=== PATIENT | male | born 1980 ===

== ENCOUNTER 2021-03-01 23:47 | Emergency (ER) | payer SELFPAY ==
[2021-03-02] MEDS ORDERED: ALBUTEROL 8.5 GM MDI INHALATION IH ONE (04:14)
[2021-03-02] MEDS ORDERED: ACETAMINOPHEN 500 MG TAB PO ONE (04:14)
--- NOTE | 2021-03-02 04:46 | XRay Report ---
CHEST 1 VIEW INDICATION / CLINICAL INFORMATION: cough, dyspnea, COVID-19 +ve. COMPARISON: None available. FINDINGS: SUPPORT DEVICES: None. HEART / MEDIASTINUM: No significant abnormality. LUNGS / PLEURA: No significant pulmonary or pleural abnormality. No pneumothorax. ADDITIONAL FINDINGS: No significant additional findings. IMPRESSION: 1. No acute findings. Signer Name: Nory Edmond MD Signed: 03/02/2021 4:41 AM Workstation Name: [id number]
--- NOTE | 2021-03-02 06:40 | Emergency Department Report ---
- General Chief Complaint: Upper Respiratory Infection Stated Complaint: COVID19 Source: patient Mode of arrival: Ambulatory Limitations: Language Barrier - History of Present Illness Initial Comments: Patient is a 40-year-old male with no past medical history presented to the ED with complaint of acute onset persistent nasal and sinus congestion, frontal sinus pressure, diffuse body aches and pains, subjective fever and chills intermittently and persistent dry cough with chest tightness and shortness of breath for the last 5 days. Patient stated that he tested positive for COVID-19 viral infection 2 days ago and that in the last 2 days his symptoms have worsened. Patient denies dizziness, syncope, chest pain, nausea and vomiting and diarrhea, dysuria, urinary frequency and urgency, abdominal pain, change in vision, testicular pain or hematuria. MD Complaint: fever, cough, rhinorrhea, nasal congestion, sinus pain, other (Diffuse body aches and pains; tested positive for COVID-19 viral infection 2 days ago) -: Sudden, days(s) (5) Severity: severe Severity scale (0 -10): 7 Quality: sharp, aching Consistency: constant Improves With: nothing Worsens With: nothing Context: sick contacts Associated Symptoms: fever, chills, myalgias, headache, rhinorrhea, nasal congestion, cough. denies: diaphoresis, sore throat, stiff neck, chest pain, shortness of breath, abdominal pain, nausea, vomiting, diarrhea, dysuria, rash, confusion, weight loss, epistaxis Treatments Prior to Arrival: "cold medicine" - Related Data Previous Rx's Medication Instructions Recorded Last Taken Type Acetaminophen [Tylenol] 500 mg PO Q6HR PRN #40 tablet 03/02/21 Unknown Rx Albuterol Sulfate [Proventil Hfa] 2 puff IH Q6H PRN #1 hfa.aer.ad 03/02/21 Unknown Rx Ascorbic Acid [Vitamin C] 1,000 mg PO Q12H #60 tablet 03/02/21 Unknown Rx Benzonatate [Tessalon Perles] 100 mg PO Q8HR #30 capsule 03/02/21 Unknown Rx Cetirizine HCl [Zyrtec 10mg tab] 10 mg PO DAILY #30 tablet 03/02/21 Unknown Rx Allergies Allergy/AdvReac Type Severity Reaction Status Date / Time No Known Allergies Allergy Verified 03/02/21 05:04 ED Review of Systems ROS: Stated complaint: COVID19 Other details as noted in HPI Constitutional: chills, fever, malaise Eyes: denies: eye pain, eye discharge, vision change ENT: congestion, other (Frontal sinus pressure). denies: ear pain, throat pain Respiratory: cough, shortness of breath. denies: wheezing Cardiovascular: denies: chest pain, palpitations Endocrine: no symptoms reported Gastrointestinal: denies: abdominal pain, nausea, vomiting, diarrhea Genitourinary: denies: urgency, dysuria Musculoskeletal: arthralgia, myalgia. denies: back pain, joint swelling Skin: denies: rash, lesions Neurological: headache. denies: weakness, paresthesias Psychiatric: denies: anxiety, depression Hematological/Lymphatic: denies: easy bleeding, easy bruising ED Past Medical Hx - Past Medical History Previous Medical History?: No - Surgical History Past Surgical History?: No - Medications Home Medications: Home Medications Medication Instructions Recorded Confirmed Last Taken Type Acetaminophen [Tylenol] 500 mg PO Q6HR PRN #40 tablet 03/02/21 Unknown Rx Albuterol Sulfate [Proventil Hfa] 2 puff IH Q6H PRN #1 hfa.aer.ad 03/02/21 Unknown Rx Ascorbic Acid [Vitamin C] 1,000 mg PO Q12H #60 tablet 03/02/21 Unknown Rx Benzonatate [Tessalon Perles] 100 mg PO Q8HR #30 capsule 03/02/21 Unknown Rx Cetirizine HCl [Zyrtec 10mg tab] 10 mg PO DAILY #30 tablet 03/02/21 Unknown Rx ED Physical Exam - General Limitations: Language Barrier General appearance: alert, in no apparent distress - Head Head exam: Present: atraumatic, normocephalic, normal inspection - Eye Eye exam: Present: normal appearance, PERRL, EOMI Pupils: Present: normal accommodation - ENT ENT exam: Present: normal orophraynx, mucous membranes moist, TM's normal bilaterally, normal external ear exam, other (Grossly congested nasal passages; palpable frontal sinus tenderness) - Neck Neck exam: Present: normal inspection, full ROM. Absent: tenderness - Respiratory Respiratory exam: Present: normal lung sounds bilaterally. Absent: respiratory distress, wheezes, rales, rhonchi, chest wall tenderness, accessory muscle use, decreased breath sounds, prolonged expiratory - Cardiovascular Cardiovascular Exam: Present: regular rate, normal rhythm, normal heart sounds. Absent: systolic murmur, diastolic murmur, rubs, gallop - GI/Abdominal GI/Abdominal exam: Present: soft, normal bowel sounds. Absent: tenderness, guarding, rebound, hyperactive bowel sounds, hypoactive bowel sounds, organomegaly, mass - Extremities Exam Extremities exam: Present: normal inspection, full ROM, normal capillary refill - Back Exam Back exam: Present: normal inspection, full ROM. Absent: tenderness, CVA tenderness (L), muscle spasm, paraspinal tenderness, vertebral tenderness - Neurological Exam Neurological exam: Present: alert, oriented X3, CN II-XII intact, normal gait, reflexes normal - Psychiatric Psychiatric exam: Present: normal affect, normal mood - Skin Skin exam: Present: warm, dry, intact, normal color. Absent: rash ED Course Vital Signs 03/02/21 02:03 Temperature 98.4 F Pulse Rate 84 Respiratory 18 Rate Blood Pressure 115/85 [Right] O2 Sat by Pulse 98 Oximetry ED Medical Decision Making - Radiology Data Radiology results: report reviewed, image reviewed [facility] [address] [place] [address] XRay Report Signed Patient: WILLIAM HERNÁNDEZ MR#: [id number] : 1980 Acct:[id number] Age/Sex: 40 / M ADM Date: 03/01/21 Loc: ED Attending Dr: Ordering Physician: MAGGIE BAUTISTA Date of Service: 03/02/21 Procedure(s): XR chest 1V ap Accession Number(s): [id number] cc: MAGGIE BAUTISTA Fluoro Time In Minutes: CHEST 1 VIEW INDICATION / CLINICAL INFORMATION: cough, dyspnea, COVID-19 +ve. COMPARISON: None available. FINDINGS: SUPPORT DEVICES: None. HEART / MEDIASTINUM: No significant abnormality. LUNGS / PLEURA: No significant pulmonary or pleural abnormality. No pneumothorax. ADDITIONAL FINDINGS: No significant additional findings. IMPRESSION: 1. No acute findings. Signer Name: Nory Edmond MD Signed: 03/02/2021 4:41 AM Workstation Name: [id number] Transcribed By: JR Dictated By: Nory Edmond MD Electronically Authenticated By: Nory Edmond MD Signed Date/Time: 03/02/21440 DD/ 0 TD/TT: - Medical Decision Making This is a 40-year-old male with no past medical history presented to the ED with complaint of acute onset persistent nasal and sinus congestion, frontal sinus pressure, diffuse body aches and pains, subjective fever and chills intermittently and persistent dry cough with chest tightness and shortness of breath for the last 5 days. Patient stated that he tested positive for COVID-19 viral infection 2 days ago and that in the last 2 days his symptoms have worsened. In the ED, patient is alert and oriented x3 and is not in any distress. Patient is hemodynamically stable. Patient was treated for pain in the ED. Chest x-ray showed no acute cardiopulmonary abnormalities or pneumonitis. On reevaluation, patient's pain is well controlled medication. Patient will discharge home on medications and advised to self quarantine for 5 days as per the CDC recommendations, take medications with food, drink plenty of fluids and follow-up with his primary care physician afterwards. Patient was advised return to the ED immediately if symptoms get worse. - Differential Diagnosis COVID-19; pneumonia; bronchitis; URI; Critical care attestation.: If time is entered above; I have spent that time in minutes in the direct care of this critically ill patient, excluding procedure time. ED Disposition Clinical Impression: Upper respiratory tract infection due to COVID-19 virus, Acute bronchitis due to COVID-19 virus Disposition: HOME / SELF CARE / HOMELESS Is pt being admited?: No Does the pt Need Aspirin: No Condition: Stable Instructions: Acute Bronchitis (ED), COVID-19 Frequently Asked Questions, Viral Respiratory Infection, [id number], Acute Bronchitis, Adult, [id number], COVID-19: How to Protect Yourself and Others - CDC, Prevent the Spread of COVID- 19 if You Are Sick - CDC Additional Instructions: La radiografa de trax no mostr alteraciones cardiopulmonares agudas ni neumonitis. Por lo tanto, tome la medicacin con alimentos, chastity muchos lquidos y pngase en cuarentena en casa [place] [address] y, a partir de entonces, casi un seguimiento con desai mdico de atencin primaria para meli evaluacin adicional. Regrese al servicio de urgencias de inmediato si los sntomas empeoran. Prescriptions: Acetaminophen [Tylenol] 500 mg PO Q6HR PRN #40 tablet PRN Reason: Pain or fever Albuterol Sulfate [Proventil Hfa] 2 puff IH Q6H PRN #1 hfa.aer.ad PRN Reason: Shortness Of Breath Benzonatate [Tessalon Perles] 100 mg PO Q8HR #30 capsule Ascorbic Acid [Vitamin C] 1,000 mg PO Q12H #60 tablet Cetirizine HCl [Zyrtec 10mg tab] 10 mg PO DAILY #30 tablet Referrals: [facility] [Provider Group] - 7-10 days Forms: Work/School Release Form(ED) Time of Disposition: 06:40 Print Language: LAO
[2021-03-02 07:13] VITALS: BP 130/80
== END 2021-03-02 07:11 | disposition home or self-care (01) ==
LOC: ED 23:47
DX: U07.1 COVID-19 (principal); J06.9 Acute upper respiratory infection, unspecified; J20.9 Acute bronchitis, unspecified
CPT/HCPCS: 71045; 94640; 99283